=== PATIENT | female | born 1960 | race Caucasian/White ===

== ENCOUNTER 2016-12-23 11:19 | Emergency (ER) | payer BC ==
[2016-12-23 11:24] VITALS: BP 116/62
[2016-12-23] MEDS ORDERED: Erythromycin TOPICAL GEL* 30 GM TUBE TOPICAL ONE (14:33)
[2016-12-23] MEDS ORDERED: Erythromycin OPTH OINT* APPLIC OINT ONE (14:39)
--- NOTE | 2016-12-23 14:40 | ED ---
Complex/Multi-Sys Presentation - HPI Summary HPI Summary: Pt presents w/ Lt eye pain and swelling of lower lid. Noticed 2 white bumps last night - pain better today but swollen. Denies ocular pain, change in vision , sensation of FB, bumps or lesions or pain along face/scalp. Had make-up applied for an event a couple of days ago - possibly triggered? Denies use of contact lenses. Also noticed LE's redness, swelling and itching rash x 4 days. Noticed after finishing a meal out in [facility]. No new foods at that meal however she's not positive one way or the other if a new food could have been in food she ate ( ie. cross contamination). No known h/o drug or food allergies and does not have particularly sensitive skin. She's tried benadryl and w/o relief -continues to get worse. She flew from [place] last week and has been driving - feet and ankles are have been a little swollen but denies calf pain, chest pain, shortness of breath, fever, back pain, cough. She does take hormones estrogen and progesterone. Denies smoking, h/o cancer, h/o clots. She denies new cosmetics, detergents, recent shaving, sun exposure, walking through plants, etc. Wondering if this could be a bug bite? - History Of Current Complaint Chief Complaint: EDEyeProblem Time Seen by Provider: 12/23/16 13:29 Hx Obtained From: Patient - Allergies/Home Medications Allergies/Adverse Reactions: Allergies Allergy/AdvReac Type Severity Reaction Status Date / Time No Known Allergies Allergy Verified 12/23/16 11:42 PMH/Surg Hx/FS Hx/Imm Hx Previously Healthy: Yes Endocrine/Hematology History: Denies: Hx Anticoagulant Therapy, Hx Diabetes, Hx Thyroid Disease, Hx Anemia , Hx Unexplained Bleeding, Autoimmune Disease Respiratory History: Denies: Hx Asthma, Hx Seasonal Allergies Infectious Disease History: No Infectious Disease History: Denies: Traveled Outside the [place] in Last 30 Days - Social History Occupation: Employed Full-time Alcohol Use: None Substance Use Type: Reports: None Smoking Status (MU): Never Smoked Tobacco Review of Systems Negative: Fever, Chills Eyes: Other - see HPI Positive: Drainage, Erythema. Negative: Photophobia, Blurred Vision, Diplopia Negative: Sore Throat, Ear Ache, Nasal Discharge Cardiovascular: Negative Negative: Palpitations, Chest Pain Respiratory: Negative Negative: Shortness Of Breath, Cough Gastrointestinal: Negative Positive: no symptoms reported Musculoskeletal: Negative Skin: Other - see HPI Neurological: Negative Psychological: Normal All Other Systems Reviewed And Are Negative: Yes Physical Exam Triage Information Reviewed: Yes Vital Signs On Initial Exam: Initial Vitals Temp Pulse Resp BP Pulse Ox 97.7 F 73 18 116/62 98 12/23/16 11:22 12/23/16 11:22 12/23/16 11:22 12/23/16 11:22 12/23/16 11:22 Vital Signs Reviewed: Yes Appearance: Positive: Well-Appearing, No Pain Distress, Well-Nourished Skin: Positive: Warm, Dry - urticarial rash over LE's B/L - ankles to knees w/ mild edema about the lateral malleoli B/L - NTTP Head/Face: Positive: Normal Head/Face Inspection - no lesions along Lt face/ scalp - NTTP Eyes: Positive: EOMI, JERAMIE, Conjunctiva Inflammed - Lt lower lid - purulent d/c from pustule - tissue is friable here, Other: - false eyelashes are glued to pt' s lids ENT: Positive: Normal ENT inspection, Hearing grossly normal, Pharynx normal, TMs normal - no lesions. Negative: Nasal congestion, Nasal drainage - no lesions Neck: Positive: Supple, Nontender, No Lymphadenopathy Respiratory/Lung Sounds: Positive: Clear to Auscultation, Breath Sounds Present Cardiovascular: Positive: Normal, RRR, Pulses are Symmetrical in both Upper and Lower Extremities. Negative: Leg Edema Left, Leg Edema Right - (-) Beto's B/L Musculoskeletal: Positive: Normal, Strength/ROM Intact Neurological: Positive: Normal, Sensory/Motor Intact, Alert, Oriented to Person Place, Time, CN Intact II-III Diagnostics - Vital Signs Vital Signs Temp Pulse Resp BP Pulse Ox 12/23/16 11:37 97.7 F 73 18 116/62 98 12/23/16 11:22 97.7 F 73 18 116/62 98 - Laboratory Lab Statement: Any lab studies that have been ordered have been reviewed, and results considered in the medical decision making process. Re-Evaluation - Re-Evaluation First Eval Change: Improved - eye pain resolved s/p application of erythromycin ointment Complex Multi-Symp Course/Dx Course Of Treatment: Suspect hordeolum is from recent make-up applications w/ false eyelash application (still present). Education and medication provided. Pt does NOT appear to have shingles here. In regards to her LE rash, this does not appear to be the result of DVT presence - appears to be a dermatitis of unknown etiology. Since pt has been traveling between many different states, hotels, etc it is not clear what could have caused this however education provided on how to treat dermatitis and medrol dosepak provided if worsens to reduce itching/swelling. Pt strongly urged to return to medical facility if danger s/sx present - she agrees w/ plan. - Diagnoses Provider Diagnoses: Internal hordeolum of left eye, Urticarial rash Discharge - Discharge Plan Condition: Stable Disposition: HOME Prescriptions: Erythromycin OPHTH.OINT* [Ilotycin OPHTH.OINT*] 1 applic LEFT EYE TID #1 ophth.oint Methylprednisolone [Medrol Dosepak 4 MG*] 4 mg PO .SEE SIDDHARTH INSTRUCTION #1 siddharth Patient Education Materials: Stye (ED), Urticaria (ED) Referrals: No Primary Care Phys,NOPCP [Primary Care Provider] - Additional Instructions: Keep your eyes clean by avoiding make-up and use of contact lenses - wash hands well before and after applying antibiotic eye ointment. Follow-up with ophthomologist if symptoms persist or worsen. *If you develop facial swelling, pain in eye, change in vision, headache, fever , vomiting, neck pain, return to ED For your rash, avoid scented lotions, washes, perfumes, etc - use sensitive skin moisturizers mixed with hydrocortisone cream. You may also reduce washing in long, hot showers/baths to prevent further irritation. You may try cool oatmeal bath. Avoid shaving. Follow-up with PCP if symptoms persist despite recommendations made today. *If pain worsens and/or you develop calf pain, fever, chills, chest pain, cough , bloody cough, back pain, return to ED
== END 2016-12-23 15:08 | disposition home or self-care (01) ==
LOC: ED 11:19
DX: H00.016 Hordeolum externum left eye, unspecified eyelid (principal); R21 Rash and other nonspecific skin eruption
CPT/HCPCS: 99281; A9270-GY